=== PATIENT | male | born 1955 | race Caucasian/White ===

== ENCOUNTER → 2016-10-11 | Outpatient (CLI) | payer OTHER ==
[~2016-10-11] VITALS: Ht 175.3 cm; Wt 116.6 kg
[~2016-10-11] MED LIST: ASPIR 8181 M1 PO; LISINOPRIL5 MG PO; TOPROL XL25 MG PO; ZANTAC 150MG T150 MG PO
[2016-10-11 07:12] VITALS: BP 128/74
[2016-10-11 07:23] LABS: HEMATOCRIT 46.1 % (42.0-52.0); HEMOGLOBIN 15.5 gm/dL (14.0-18.0); MCH 29.2 pg (26.0-34.0); MCHC 33.6 g/dL (28.0-37.0); MCV 87.2 fL (80.0-100.0); RBC 5.29 mil/uL (4.50-6.00); RDW 14.7 % (10.5-14.5)
[2016-10-11 07:28] LABS: CREATININE 1.2 mg/dL (0.7-1.3); POTASSIUM 4.1 mmol/L (3.5-5.1)
== END ==
LOC: CATH 06:48
PROVIDERS: Internal Medicine
DX: I25.10 Atherosclerotic heart disease of native coronary artery without angina pectoris (principal); I21.3 ST elevation (STEMI) myocardial infarction of unspecified site

== ENCOUNTER → 2016-10-22 | Outpatient (CLI) | payer OTHER | LOC: ULTRA 07:55 | DX: Z95.1 Presence of aortocoronary bypass graft (principal) ==

== ENCOUNTER 2016-10-29 05:35 | Inpatient (IN) | payer OTHER ==
[2016-10-22 09:46] LABS: HEMATOCRIT 45.6 % (42.0-52.0); HEMOGLOBIN 15.8 gm/dL (14.0-18.0); MCH 29.8 pg (26.0-34.0); MCHC 34.7 g/dL (28.0-37.0); MCV 85.9 fL (80.0-100.0); RBC 5.31 mil/uL (4.50-6.00); RDW 14.2 % (10.5-14.5); WBC 5.3 thou/uL (4.0-11.0)
[2016-10-22 09:52] LABS: CALCIUM 9.1 mg/dL (8.5-10.1); CREATININE 1.1 mg/dL (0.7-1.3)
[2016-10-22 09:56] LABS: URINE BILIRUBIN NEGATIVE (Negative); URINE BLOOD NEGATIVE (Negative); URINE COLOR YELLOW; URINE GLUCOSE-RANDOM* NEGATIVE (Negative); URINE KETONES NEGATIVE (Negative); URINE LEUKOCYTES-REFLEX NEGATIVE (Negative); URINE PROTEIN (DIPSTICK) NEGATIVE (Negative); URINE SPECIFIC GRAVITY >= 1.030 (1.003-1.035); URINE UROBILINOGEN 0.2 E.U./dl (0.2-1.0)
[2016-10-22 10:01] LABS: APTT 29.4 Seconds (24.5-32.8); INR 1.1; PROTIME 10.8 Seconds (9.3-11.4)
[~2016-10-29] VITALS: Ht 175.3 cm; Wt 123.3 kg
--- NOTE | ~2016-10-29 | O ---
[facility] [place] [address] OPERATIVE REPORT Name: KENTON YU Room #: 240-P ADM IN M.R.#: [id number] Admission: 10/29/16 Attend Phys: Ricardo Whitlock MD Discharge: Date of : 59 Report #: [id number] THIS REPORT FOR: //name// CC: Franc Bell MD [facility] FAM unknown Ricardo Whitlock DATE OF SERVICE: 10/29/2016 PREOPERATIVE DIAGNOSES: Coronary artery disease, exertional angina, history of multiple prior coronary interventions. FINAL DIAGNOSES: Coronary artery disease, exertional angina, history of multiple prior coronary interventions. OPERATIVE PROCEDURE PERFORMED: Coronary artery bypass grafting times 3 with left internal mammary artery to the LAD, saphenous vein graft sequence to PDA and then to posterolateral branch. SURGEON: Ricardo Whitlock MD COSMETIC ACCOUNT COORDINATOR: Camila Vega MD ANESTHESIA: General. OPERATIVE INDICATIONS: The patient is a very pleasant 61-year-old male with a known history of coronary artery disease. He has undergone multiple prior coronary interventions in the past. The patient has represented with exertional angina. He has undergone reevaluation with left heart catheterization showing evidence of left main and proximal LAD disease as well the high-grade stenosis in the right coronary artery system. The patient is admitted today to the hospital now and brought to the operating room for coronary artery bypass grafting. OPERATIVE SUMMARY: The patient was brought to the operating room and placed on the OR table in supine position. After anesthesia was induced via the general endotracheal route and monitoring lines have been positioned, the patient was prepped and draped in sterile fashion with chlorhexidine. A median sternotomy incision was made. The left internal mammary artery was harvested in standard fashion. Concomitantly, saphenous vein was harvested from the left lower extremity, initially below the knee using endoscopic techniques. However, this segment of vein was not usable, we therefore had to get vein from the thigh using an open technique on an urgent basis. After the sternotomy incision was made, the left internal mammary artery was harvested in standard fashion. We then opened the pericardium systemically, anticoagulated the patient with heparin. Cannulae were placed in the ascending aorta and the right atrium. [facility] [address] [place] [address] OPERATIVE REPORT Name: KENTON YU Room #: 240-P [facility] IN .R.#: [id number] Admission: 10/29/16 Attend Phys: Ricardo Whitlock MD Discharge: Date of : 59 Report #: [id number] antegrade cardioplegic cannula was positioned and after cardiopulmonary bypass was begun, under low flow conditions, the aorta was crossclamped and the heart was arrested with approximately 1200 mL cold antegrade cardioplegia. This was augmented with topical ice slush. Diastolic arrest was achieved and maintained throughout this operation with intermittent doses of cold antegrade cardioplegia as well as cardioplegia given down grafts and topical ice slush. We first opened up the LAD. This was a large vessel about 2 mm in size. The WARNER was brought onto the field. Anastomosis was carried out in an end-to-side fashion with 7-0 Prolene. We then tacked the pedicle to the epicardium with 6-0 Prolene. Next, we positioned her for grafting the posterolateral branch. This vessel was opened and vessel distal anastomosis was carried out in an end-to-side fashion with 7-0 Prolene. We then constructed a iohc-ev-rmlm anastomosis at this time to the PDA and this was done with 7-0 Prolene as well. Warm cardioplegia was given and under low flow conditions, the aortic cross clamp was released. Then, under low flow conditions again, the partial occluding clamp was placed over the site of the aortic root vent. The aortic root vent was removed. A 4.8 punch aortotomy was created and the proximal anastomosis was sewn with 6-0 Prolene. Prior to sewing this anastomosis, the bulldog was removed on the mammary pedicle. Heart was then placed back in its anatomic position. A normal sinus rhythm had resumed. Atrial and ventricular pacing wires were positioned. The patient was rewarmed to 37-degree centigrade and 3 successive doses of calcium and a single dose of magnesium of 2 grams was given over 3-5 minute intervals. After a suitable period of reperfusion, the lungs were reinflated. The patient was weaned from cardiopulmonary bypass without inotropic support. Protamine was given to reverse the heparin, decannulation was effected. Once satisfactory hemostasis was achieved, we placed two 32-Swedish chest tubes in the anterior mediastinum and a 24 Olivier drain in left pleural space, bringing them out through separate stab incisions. The sternum was closed with #7 wire. The fascia, subcutaneous, and skin were closed in multiple layers of absorbable suture. The procedure was completed. The patient was taken to the ICU in stable condition. Cardiopulmonary bypass time and crossclamp times are not available to me at the time of this dictation. <ELECTRONICALLY SIGNED> By: Ricardo Whitlock MD 10/30/16 1148 1228 1328 Ricardo Whitlock MD /nt
--- NOTE | ~2016-10-29 | HC ---
[facility] [place] [place] [address] CONSULTATION Name: KENTON YU Room #: 214-P [facility] IN M.R.#: [id number] Admission: 10/29/16 Attend Phys: Ricardo Whitlock MD Discharge: Date of : 59 Report #: [id number] THIS REPORT FOR: //name// CC: FAM unknown Ricardo Whitlock DATE OF SERVICE: 10/29/2016 REASON FOR CONSULTATION: Coronary artery disease. HISTORY OF PRESENT ILLNESS: The patient is a 61-year-old gentleman with a history of remote myocardial infarction in 1996. This was treated with stenting with repeat stenting 10 years later. He recently presented with a prolonged episode of chest discomfort. This was in mid August. This was reminiscent to his angina. An outpatient troponin at that time was elevated at 18.78. He declined evaluation. Then presented with recurrent chest discomfort and ultimately, coronary angiography demonstrated significant multivessel disease. He now presents and has undergone bypass surgery with a left internal mammary to the LAD and a sequential vein graft to the posterior descending and posterolateral branches. He is intubated and sedated. The patient reports terrible problems with STATIN MEDICINES in the past including LIPITOR, PRAVASTATIN and CRESTOR. These are true allergies. He has been recently started on Repatha injections. There is no history of diabetes or tobacco dependency. There is a strong family history of premature coronary artery disease with his father having his first heart attack at the age of 46. ALLERGIES: Include STATINS. MEDICATIONS: Aspirin, lisinopril 5 mg daily, Zantac, Toprol-XL 25 mg daily. PAST MEDICAL HISTORY: Medical records have been reviewed and include a history of hypertension, reflux disease, dyslipidemia, mild ischemic cardiomyopathy. SOCIAL HISTORY: He is , nonsmoker. FAMILY HISTORY: Notable for premature coronary artery disease. REVIEW OF SYSTEMS: All systems negative except as that noted above. PHYSICAL EXAMINATION: GENERAL: Reveals a comatose gentleman who is intubated and ventilated. VITAL SIGNS: Blood pressure is 134/71, saturations 98%, 5 feet 9 inches tall, 257 pounds. HEENT: There are neither xanthelasma, subcutaneous xanthomata, oral mucosal or digital cyanosis or kyphoscoliosis present. [facility] [address] [place] [address] CONSULTATION Name: KENTON YU Room #: 214-P [facility] IN [facility].#: [id number] Admission: 10/29/16 Attend Phys: Ricardo Whitlock MD Discharge: Date of : 59 Report #: [id number] CHEST: Clear to auscultation and percussion. CARDIAC: Regular rate and rhythm with normal S1, S2. ABDOMEN: Soft and nontender. EXTREMITIES: Without cyanosis, clubbing or edema. Radial pulses are 2+. NEUROLOGIC: He is sedated and intubated. LABORATORY DATA: Sodium 144, potassium 4.5. White count 12.0, hemoglobin 13, hematocrit 36, platelet count 184. Total cholesterol 231, HDL 39, LDL 162, triglycerides 152. IMPRESSION: 1. Mild ischemic cardiomyopathy. 2. Coronary artery bypass grafting x 3. 3. Dyslipidemia. 4. Hypertension. RECOMMENDATIONS: 1. Perioperative beta blockade. 2. Usual postoperative management. I will follow along with you. Thank you for asking me to participate in his care. <ELECTRONICALLY SIGNED> By: Franc Bell MD, FACC 10/30/16 1723 1330 1409 Franc Bell MD, FAC /nt
--- NOTE | ~2016-10-29 | EKG ---
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 : 1955 Requested By: Rosi Macdonald Order Number: [id number] MD: Franc Bell Measurements Intervals [place] Rate: 79 P: 41 MN: 196 QRS: 75 QRSD: 98 T: 106 QT: 372 QTc: 427 Interpretive Statements Sinus rhythm Atrial premature complex Borderline low voltage, extremity leads Abnormal R-wave progression, early transition Nonspecific T abnormalities, lateral leads Compared to ECG 10/22/2016 09:33:51 Atrial premature complex(es) now present Electronically Signed On 10-30-2016 17:18:12 CDT by Farnc Bell [email or web address] <ELECTRONICALLY SIGNED> By: Franc Bell MD, [facility] 10/30/16 1718 0627 Franc Bell MD, [facility] /EPI
--- NOTE | ~2016-10-29 | EKG ---
[address] [place] [address] ELECTROCARDIOGRAM REPORT Name: KENTON YU Room #: 214-P ADM IN M.R.#: [id number] Admission: 10/29/16 Attend Phys: Ricardo Whitlock MD Discharge: Date of : 59 Report #: [id number] THIS REPORT FOR: //name// 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: Troy PORTILLO : 1955 Requested By: Rosi Macdonald Order Number: [id number] MD: Franc Bell Measurements Intervals [place] Rate: 83 P: 54 AR: 202 QRS: 124 QRSD: 110 T: 91 QT: 384 QTc: 452 Interpretive Statements Sinus rhythm Borderline prolonged AR interval Borderline low voltage, extremity leads Right ventricular hypertrophy Nonspecific T abnormalities, lateral leads Compared to ECG 10/22/2016 09:33:[address] and T wave abnormality is less pronounced Electronically Signed On 10-30-2016 16:58:59 CDT by Franc Bell [email or web address] <ELECTRONICALLY SIGNED> By: Franc Bell MD, [facility] 10/30/16 1658 1441 1441 Franc Bell MD, [facility] /EPI
--- NOTE | ~2016-10-29 | EKG ---
[place] [address] [facility] [place] [place] [address] ELECTROCARDIOGRAM REPORT Name: KENTON YU Room #: PRE IN [facility]#: [id number] Admission: Attend Phys: Ricardo Whitlock MD Discharge: Date of : 59 Report #: [id number] THIS REPORT FOR: //name// [facility] Test Date: 2016-10-22 Test Time: 09:33:51 Pat Name: KENTON YU Department: Room: Gender: Tower Technician: beau galan : 1955 Requested By: Ricardo Whitlock Order Number: [id number] MD: Franc Bell Measurements Intervals [place] Rate: 63 P: 58 PA: 212 QRS: 111 QRSD: 113 T: -7 QT: 413 QTc: 423 Interpretive Statements Sinus rhythm Prolonged PA interval Small inferior Q waves Inferolateral ST and T wave abnormality No previous ECG available for comparison Electronically Signed On 10-23-2016 8:06:15 CDT by Franc Bell [email or web address] <ELECTRONICALLY SIGNED> By: Franc Bell MD, [facility] 10/23/16 0806 0933 2 Franc Bell MD, FACC /EPI
[2016-10-29 07:36] VITALS: BP 134/71
[2016-10-29 12:11] LABS: POC BE 0 mmol/L (-2.0 to +3.0); POC CA IONIZED 4.1 mg/dL (4.5-5.3); POC FiO2 100 %; POC GLUCOSE 127 mg/dL (70-99); POC HCO3 25.7 mmol/L (22.0-26.0); POC HEMOGLOBIN 10.2 g/dL (14.0-18.0); POC POTASSIUM 6.2 mmol/L (3.5-5.1); POC SODIUM 139 mmol/L (136-145); POC pCO2 43.7 mmHg (35.0-45.0); POC pH 7.377 (7.360-7.450)
[2016-10-29 12:11] LABS: POC BE -2 mmol/L (-2.0 to +3.0); POC CA IONIZED 5.9 mg/dL (4.5-5.3); POC FiO2 100 %; POC GLUCOSE 110 mg/dL (70-99); POC HCO3 22.9 mmol/L (22.0-26.0); POC HEMOGLOBIN 11.2 g/dL (14.0-18.0); POC POTASSIUM 4.6 mmol/L (3.5-5.1); POC SODIUM 141 mmol/L (136-145); POC pCO2 37.9 mmHg (35.0-45.0); POC pH 7.389 (7.360-7.450)
[2016-10-29 12:11] LABS: POC BE 0 mmol/L (-2.0 to +3.0); POC CA IONIZED 4.6 mg/dL (4.5-5.3); POC FiO2 100 %; POC GLUCOSE 110 mg/dL (70-99); POC HCO3 25.4 mmol/L (22.0-26.0); POC HEMOGLOBIN 13.3 g/dL (14.0-18.0); POC POTASSIUM 4.2 mmol/L (3.5-5.1); POC SODIUM 140 mmol/L (136-145); POC pCO2 42.7 mmHg (35.0-45.0); POC pH 7.382 (7.360-7.450)
[2016-10-29 12:11] LABS: POC BE -1 mmol/L (-2.0 to +3.0); POC CA IONIZED 7.2 mg/dL (4.5-5.3); POC FiO2 100 %; POC GLUCOSE 112 mg/dL (70-99); POC HCO3 24.7 mmol/L (22.0-26.0); POC HEMOGLOBIN 9.9 g/dL (14.0-18.0); POC POTASSIUM 5.7 mmol/L (3.5-5.1); POC SODIUM 139 mmol/L (136-145); POC pCO2 44.3 mmHg (35.0-45.0); POC pH 7.354 (7.360-7.450)
[2016-10-29 12:11] LABS: POC BE -1 mmol/L (-2.0 to +3.0); POC CA IONIZED 6.1 mg/dL (4.5-5.3); POC FiO2 100 %; POC GLUCOSE 107 mg/dL (70-99); POC HCO3 23.8 mmol/L (22.0-26.0); POC HEMOGLOBIN 9.9 g/dL (14.0-18.0); POC POTASSIUM 4.9 mmol/L (3.5-5.1); POC SODIUM 141 mmol/L (136-145); POC pCO2 39.7 mmHg (35.0-45.0); POC pH 7.386 (7.360-7.450)
[2016-10-29 12:11] LABS: POC BE 0 mmol/L (-2.0 to +3.0); POC FiO2 100 %; POC GLUCOSE 121 mg/dL (70-99); POC HCO3 25.6 mmol/L (22.0-26.0); POC HEMOGLOBIN 10.2 g/dL (14.0-18.0); POC POTASSIUM 4.9 mmol/L (3.5-5.1); POC SODIUM 139 mmol/L (136-145); POC pCO2 48.7 mmHg (35.0-45.0); POC pH 7.329 (7.360-7.450)
[2016-10-29 12:11] LABS: POC BE 0 mmol/L (-2.0 to +3.0); POC CA IONIZED 4.1 mg/dL (4.5-5.3); POC FiO2 100 %; POC GLUCOSE 125 mg/dL (70-99); POC HCO3 25.5 mmol/L (22.0-26.0); POC HEMOGLOBIN 10.2 g/dL (14.0-18.0); POC POTASSIUM 5.7 mmol/L (3.5-5.1); POC SODIUM 138 mmol/L (136-145); POC pH 7.343 (7.360-7.450)
[2016-10-29 12:11] LABS: POC BE -1 mmol/L (-2.0 to +3.0); POC CA IONIZED 4.4 mg/dL (4.5-5.3); POC FiO2 100 %; POC GLUCOSE 117 mg/dL (70-99); POC HCO3 24.3 mmol/L (22.0-26.0); POC HEMOGLOBIN 12.9 g/dL (14.0-18.0); POC POTASSIUM 4.3 mmol/L (3.5-5.1); POC SODIUM 141 mmol/L (136-145); POC pCO2 44.7 mmHg (35.0-45.0); POC pH 7.343 (7.360-7.450)
[2016-10-29 12:11] LABS: POC BE -4 mmol/L (-2.0 to +3.0); POC CA IONIZED 4.1 mg/dL (4.5-5.3); POC FiO2 100 %; POC GLUCOSE 120 mg/dL (70-99); POC HCO3 22.4 mmol/L (22.0-26.0); POC HEMOGLOBIN 10.5 g/dL (14.0-18.0); POC POTASSIUM 4.9 mmol/L (3.5-5.1); POC SODIUM 140 mmol/L (136-145); POC pCO2 44.7 mmHg (35.0-45.0); POC pH 7.309 (7.360-7.450)
[2016-10-29 12:41] LABS: ABG SAMPLE TYPE ARTERIAL
[2016-10-29 12:47] LABS: HCO3 20.1 mmol/L (22.0-26.0); O2Hb 97.1 % (92.0-98.0); PCO2 37.8 mmHg (35.0-45.0); PO2 115.8 mmHg (80.0-100.0); pH 7.344 (7.360-7.450); tCO2 21.3 mmol/L (24.0-30.0)
[2016-10-29 12:48] LABS: ABG COMMENT 1ST POST-OP; STICK SITE LINE; TIDAL VOLUME 700 ml
[2016-10-29 13:00] LABS: HEMATOCRIT 37.6 % (42.0-52.0); MCH 29.7 pg (26.0-34.0); MCHC 34.5 g/dL (28.0-37.0); RBC 4.37 mil/uL (4.50-6.00); RDW 14.5 % (10.5-14.5)
[2016-10-29 13:07] LABS: CALCIUM 9.7 mg/dL (8.5-10.1); CREATININE 1.2 mg/dL (0.7-1.3); POTASSIUM 4.5 mmol/L (3.5-5.1)
[2016-10-29 15:46] LABS: ABG SAMPLE TYPE ARTERIAL; BE(vivo) -5.2 mmol/L (-2 to +3); HCO3 19.6 mmol/L (22.0-26.0); LACTATE 2.12 mmol/L (0.5-2.0); O2(CT) 18.8 mL/dL (15.0-23.0); O2Hb 97.4 % (92.0-98.0); PCO2 35.7 mmHg (35.0-45.0); PO2 128.9 mmHg (80.0-100.0); pH 7.357 (7.360-7.450); sO2 98.5 % (92.0-98.0); tCO2 20.7 mmol/L (24.0-30.0)
[2016-10-29 16:05] LABS: ABG COMMENT CMV; STICK SITE ALINE; TIDAL VOLUME 700 ml
[2016-10-29 16:07] LABS: ABG SAMPLE TYPE ARTERIAL; BE(vivo) -5.2 mmol/L (-2 to +3); LACTATE 2.24 mmol/L (0.5-2.0); O2(CT) 18.6 mL/dL (15.0-23.0); O2Hb 96.2 % (92.0-98.0); PCO2 38.1 mmHg (35.0-45.0); PO2 104.1 mmHg (80.0-100.0); pH 7.338 (7.360-7.450); sO2 97.5 % (92.0-98.0); tCO2 21.2 mmol/L (24.0-30.0)
[2016-10-29 16:08] LABS: ABG COMMENT CPAP; Pressure Support 6 cm H20; STICK SITE ALINE
[2016-10-29 17:22] LABS: ABG COMMENT NO COMPLICATIONS.; ABG SAMPLE TYPE ARTERIAL; BE(vivo) -4.8 mmol/L (-2 to +3); HCO3 20.5 mmol/L (22.0-26.0); LACTATE 2.54 mmol/L (0.5-2.0); O2(CT) 17.9 mL/dL (15.0-23.0); O2Hb 93.2 % (92.0-98.0); PCO2 38.7 mmHg (35.0-45.0); PO2 73.8 mmHg (80.0-100.0); STICK SITE ALINE; pH 7.341 (7.360-7.450); sO2 94.1 % (92.0-98.0); tCO2 21.6 mmol/L (24.0-30.0)
[2016-10-29 18:19] LABS: HEMOGLOBIN 13.1 gm/dL (14.0-18.0); MCH 29.7 pg (26.0-34.0); MCHC 34.3 g/dL (28.0-37.0); MCV 86.6 fL (80.0-100.0); RBC 4.39 mil/uL (4.50-6.00); RDW 14.5 % (10.5-14.5); WBC 10.9 thou/uL (4.0-11.0)
[2016-10-29 18:26] LABS: CALCIUM 9.1 mg/dL (8.5-10.1); CREATININE 1.2 mg/dL (0.7-1.3); POTASSIUM 4.5 mmol/L (3.5-5.1)
[2016-10-30 05:30] LABS: HEMATOCRIT 37.4 % (42.0-52.0); HEMOGLOBIN 12.8 gm/dL (14.0-18.0); MCH 29.8 pg (26.0-34.0); MCHC 34.2 g/dL (28.0-37.0); RBC 4.3 mil/uL (4.50-6.00)
[2016-10-30 05:48] LABS: CALCIUM 8.6 mg/dL (8.5-10.1); CREATININE 1.1 mg/dL (0.7-1.3); MAGNESIUM 1.9 mg/dL (1.8-2.4); POTASSIUM 4.1 mmol/L (3.5-5.1)
[2016-10-30 10:32] VITALS: BP 111/64
[2016-10-30 11:00] VITALS: BP 101/61
[2016-10-30 16:00] VITALS: BP 109/61
[2016-10-30 19:55] VITALS: BP 104/58
[2016-10-30 23:48] VITALS: BP 136/72
[2016-10-31 04:05] VITALS: BP 101/59
[2016-10-31 05:17] VITALS: BP 152/82
[2016-10-31 08:39] VITALS: BP 99/60
[2016-10-31 12:30] VITALS: BP 106/66
[2016-10-31 16:20] VITALS: BP 90/56
[2016-10-31 20:23] VITALS: BP 125/67
[2016-11-01 04:09] VITALS: BP 120/63
[2016-11-01 04:33] LABS: CREATININE 1.3 mg/dL (0.7-1.3); MAGNESIUM 1.8 mg/dL (1.8-2.4); POTASSIUM 3.8 mmol/L (3.5-5.1)
[2016-11-01 04:56] LABS: HEMATOCRIT 36.1 % (42.0-52.0); HEMOGLOBIN 12.4 gm/dL (14.0-18.0)
[2016-11-01 07:35] VITALS: BP 106/68
[2016-11-01 11:29] VITALS: BP 124/69
[2016-11-01] MEDS ORDERED: SENOKOT-S1 TA1 PO (12:38)
[2016-11-01] MEDS ORDERED: ASPIRIN325 PO (12:41)
[2016-11-01] MEDS ORDERED: HYDROCODON-ACE1 EAC7 PO (12:51)
[2016-11-01 16:50] VITALS: BP 107/64
[2016-11-01 19:52] VITALS: BP 108/66
[2016-11-02 03:47] VITALS: BP 121/78
[2016-11-02 08:08] VITALS: BP 116/66
[2016-11-02 11:17] VITALS: BP 116/66
[2016-11-02 12:31] VITALS: BP 116/66
== END 2016-11-02 12:34 | disposition home or self-care (01) | DRG 234 ==
LOC: PRE → ICU 05:35 → TBA 05:35 → PRE 08:29 → ICU 12:32 → PRE 19:14 → 2N 10-30 12:09
PROVIDERS: Nurse Practitioner; Thoracic Surgery (Cardiothoracic Vascular Surgery)
PROC: 02100Z9 Bypass Coronary Artery, One Artery from Left Internal Mammary, Open Approach (ICD-10-PCS; principal; 2016-10-29)
PROC: B2111ZZ Fluoroscopy of Multiple Coronary Arteries using Low Osmolar Contrast (ICD-10-PCS; 2016-10-29)
PROC: 06BQ4ZZ Excision of Left Saphenous Vein, Percutaneous Endoscopic Approach (ICD-10-PCS; 2016-10-29)
PROC: 021109W Bypass Coronary Artery, Two Arteries from Aorta with Autologous Venous Tissue, Open Approach (ICD-10-PCS; 2016-10-29)
PROC: 4A023N7 Measurement of Cardiac Sampling and Pressure, Left Heart, Percutaneous Approach (ICD-10-PCS; 2016-10-29)
PROC: 5A1221Z Performance of Cardiac Output, Continuous (ICD-10-PCS; 2016-10-29)
DX: I25.118 Atherosclerotic heart disease of native coronary artery with other forms of angina pectoris (principal); I10 Essential (primary) hypertension; K21.9 Gastro-esophageal reflux disease without esophagitis; E78.5 Hyperlipidemia, unspecified; I25.5 Ischemic cardiomyopathy; E87.6 Hypokalemia; I25.2 Old myocardial infarction; Z88.8 Allergy status to other drugs, medicaments and biological substances; Z82.49 Family history of ischemic heart disease and other diseases of the circulatory system; Z95.5 Presence of coronary angioplasty implant and graft
CPT/HCPCS: 10078; 10081; 47000; 47001; 47002; 47297; 50010; 50249; 50318; 50409; 50456; 50497; 50662; 50668; 51301; 52131; 53327; 53358; 54118; 56524; 56525; 56526; 56527; 56528; 56531; 56533; 56534; 56639; 56660; 57093; 62110; 62950; 64029; 65002; 65003; 65020; 65043; 65090; 83006

== ENCOUNTER → 2016-11-27 | Outpatient (CLI) | payer OTHER ==
[~2016-11-27] MED LIST changes: +ASPIRIN325 PO; +HYDROCODON-ACE1 EAC7 PO; +SENOKOT-S1 TA1 PO
== END ==
LOC: RAD 07:25
DX: R07.9 Chest pain, unspecified (principal); Z98.890 Other specified postprocedural states

== ENCOUNTER → 2016-12-25 | Outpatient (CLI) | payer OTHER | LOC: RAD 08:47 | DX: I25.10 Atherosclerotic heart disease of native coronary artery without angina pectoris (principal); J90 Pleural effusion, not elsewhere classified; Z98.890 Other specified postprocedural states ==

== ENCOUNTER → 2020-12-05 | Outpatient (CLI) | payer OTHER | LOC: SJCVCIMAG 11-14 11:07 | PROVIDERS: ATTEND Internal Medicine | DX: R00.0 Tachycardia, unspecified (principal); I25.10 Atherosclerotic heart disease of native coronary artery without angina pectoris; E78.5 Hyperlipidemia, unspecified; I10 Essential (primary) hypertension; Z95.1 Presence of aortocoronary bypass graft ==